=== PATIENT | male | born 1985 | race American Indian/Alaskan Native ===

== ENCOUNTER 2019-10-30 18:36 | Emergency (ER) | payer SELFPAY ==
[2019-10-30 18:50] VITALS: BP 140/96
--- NOTE | 2019-10-30 19:01 | Event Note ---
ED Screening Note Date of service: 10/30/19 Time: 18:48 ED Screening Note: 34 y o male presents with anger out of control stating that there is something wrong with him se states he has a hx of PTSD, Bi Polar, Anxiety He denies any SI/HI/AH/VH states he went to Behavioral health and saw a psychiatrist at [facility] he states he wanted the same care Pt is AAO x 3 in no acute distress explained ER process to patient and his mother and Pt chose to leave stating hje will; go back to the psychiatrist This initial assessment/diagnostic orders/clinical plan/treatment(s) is/are subject to change based on patients health status, clinical progression and re- assessment by fellow clinical providers in the ED. Further treatment and workup at subsequent clinical providers discretion. Patient/guardian urged not to elope from the ED as their condition may be serious if not clinically assessed and managed. Initial orders include: Pt signed AMA and left the ER with his mother
== END 2019-10-30 19:02 | disposition left against medical advice (07) ==
LOC: ED 18:36
DX: R41.82 Altered mental status, unspecified (principal); Z53.21 Procedure and treatment not carried out due to patient leaving prior to being seen by health care provider